=== PATIENT | female | born 1945 | race Caucasian/White ===

== ENCOUNTER 2021-01-29 08:10 | Outpatient (REF) | payer MEDICARE, SELFPAY ==
[2021-01-29 09:30] LABS: Alanine Aminotransferase 32 U/L (0-31); Albumin Level 4.2 g/dL (3.5-5.0); Alkaline Phosphatase 79 U/L (39-117); Anion Gap 14 (12-20); Aspartate Amino Transferase 31 U/L (5-31); Bilirubin Total 0.5 mg/dL (0.0-1.0); Blood Urea Nitrogen 11 mg/dL (9-16); Carbon Dioxide 28 mmol/L (22-29); Chloride 100 mmol/L (96-108); Cholesterol 239 mg/dL; Estimated Glomerular Filt Rate > 60; Glucose Random 85 mg/dL (60-115); HDL Cholesterol 97 mg/dL; LDL Cholesterol Calculated 136 mg/dl; Potassium 4.6 mmol/L (3.3-5.1); Sodium 137 mmol/L (135-145); Total Protein 6.5 g/dL (6.5-8.0); Triglycerides 31 mg/dL
== END 2021-01-29 08:11 | disposition home or self-care (01) ==
LOC: HO.LAB 08:10
PROVIDERS: PCP Internal Medicine; Visit Provider Internal Medicine
DX: E78.00 Pure hypercholesterolemia, unspecified (principal); H61.23 Impacted cerumen, bilateral; I25.810 Atherosclerosis of coronary artery bypass graft(s) without angina pectoris; Z91.14 Patient's other noncompliance with medication regimen
CPT/HCPCS: 36415; 80053; 80061

== ENCOUNTER 2021-08-07 07:16 | Outpatient (REF) | payer MEDICARE, SELFPAY ==
[2021-08-07 08:37] LABS: MANUAL DIFF FLAG NO
[2021-08-07 08:44] LABS: Basophils Percent Auto 0.6 % (0-2); Eosinophils Percent Auto 0.6 % (0-4); Hematocrit 26.9 % (37-47); Hemoglobin 8.5 g/dl (12.0-16.0); Imm Gran Abs Auto 0.02 X10*3/uL (0.00-0.03); Imm Gran Pct Auto 0.4 % (0.0-0.4); Lymphocytes Absolute Auto 1.2 X10*3/uL (1.2-4.9); Lymphocytes Percent Auto 24.6 % (20-40); Mean Corpuscular HGB Conc 31.6 g/dl (31.0-35.0); Mean Corpuscular Hemoglobin 24.3 pg (27.0-33.0); Mean Corpuscular Volume 76.9 fL (80-98); Mean Platelet Volume 8.6 fL (9.4-12.3); Monocytes Absolute Auto 0.5 X10*3/uL (0.1-1.2); Monocytes Percent Auto 10.8 % (2-11); Neutrophils Absolute Auto 3.1 X10*3/uL (2.0-8.3); Platelet Count 484 X10*3/uL (160-400); Red Cell Distribution Width 18.6 % (11.0-16.0); White Blood Count 4.9 X10*3/uL (4.8-10.8)
[2021-08-07 09:31] LABS: Alanine Aminotransferase 16 U/L (0-31); Albumin Level 4.2 g/dL (3.5-5.0); Alkaline Phosphatase 82 U/L (39-117); Anion Gap 10 (12-20); Aspartate Amino Transferase 25 U/L (5-31); Bilirubin Total 0.6 mg/dL (0.0-1.0); Blood Urea Nitrogen 8 mg/dL (9-16); Calcium 9.1 mg/dL (8.4-10.2); Carbon Dioxide 29 mmol/L (22-29); Chloride 101 mmol/L (96-108); Cholesterol 227 mg/dL; Estimated Glomerular Filt Rate > 60; Glucose Fasting 82 mg/dL (60-99); HDL Cholesterol 96 mg/dL; LDL Cholesterol Calculated 125 mg/dl; Potassium 4.3 mmol/L (3.3-5.1); Sodium 136 mmol/L (135-145); Total Protein 6.6 g/dL (6.5-8.0); Triglycerides 32 mg/dL
[2021-08-07 09:36] LABS: Thyroid Stimulating Hormone 1.26 uIU/mL (0.32-4.0)
== END 2021-08-07 07:17 | disposition home or self-care (01) ==
LOC: HO.LAB 07:16
PROVIDERS: PCP Internal Medicine; Visit Provider Internal Medicine
DX: Z00.00 Encounter for general adult medical examination without abnormal findings (principal); E78.00 Pure hypercholesterolemia, unspecified; Z91.14 Patient's other noncompliance with medication regimen
CPT/HCPCS: 36415; 80053; 80061; 84443; 85025

== ENCOUNTER 2021-09-08 07:43 | Emergency (ER) | payer MEDICARE, SELFPAY ==
--- NOTE | ~2021-09-08 | XR_ITS ---
EXAMINATION: XR FOOT, RIGHT CLINICAL INFORMATION: Atraumatic dorsal foot pain. COMPARISON: None TECHNIQUE: AP, lateral, and oblique views of the right foot. An arrow points to the lateral aspect of the fifth metatarsal. FINDINGS: There is no acute fracture or dislocation. The metatarsals are intact. The tarsal bones are normally aligned. 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 The soft tissues are unremarkable. XR/XR foot RT min 3V IMPRESSION: No acute abnormality.
[2021-09-08 07:53] VITALS: BP 155/43; PULSE 71; RESP 16; TEMP 36.6; O2SAT 100; BMI 16.2
--- NOTE | 2021-09-08 08:37 | ED_ITS ---
HPI - Extremity Problem General Chief complaint: Extremity Problem Stated complaint: rt foot pain & swelling Time Seen by Provider: 09/08/21 08:22 Source: patient Mode of arrival: ambulatory Limitations: no limitations History of Present Illness HPI Narrative: 76-year-old female with 3 days of painful red warm dorsum to her right foot that is atraumatic. Patient can bear weight. She is not on any medications and is very healthy 76-year-old female Related Data Previous Rx's Medication Instructions Recorded cephalexin 500 mg capsule 500 mg PO QID 7 Days #28 cap 09/08/21 Allergies Allergy/AdvReac Type Severity Reaction Status Date / Time No Known Allergies Allergy Verified 09/08/21 08:44 Review of Systems Review of Systems: Constitutional : No Weight loss, No Fever, No Chills, No Night Sweats,No Fatigue, No Malaise ENT/Mouth : No Hearing loss, No Ear Pain, No Nasal Congestion, NoSinus Pain, No Hoarseness, No sore throat, No Rhinorrhea, NoSwallowing Difficulty Eyes: No Eye Pain, No Swelling, No Redness, No Foreign Body, NoDischarge, No Vision Changes Cardiovascular : No Chest Pain, No SOB, No Dyspnea on Exertion, NoOrthopnea, No Edema, No Palpitations Respiratory : No Cough, No Sputum, No Wheezing, No Smoke Exposure, No Dyspnea Gastrointestinal : No Nausea, No Vomiting, No Diarrhea, NoConstipation, No abdominal Pain, No Hematochezia, No Melena Genitourinary : no irregular bleeding, No Dysuria, No UrinaryFrequency, No Hematuria, No Urinary Incontinence, No Urgency, No FlankPain, No Urinary Flow Changes, No Hesitancy Musculoskeletal : right foot pain Skin : redness and swelling right foot Neuro : No Weakness, No Numbness, No Paresthesias, No Loss ofConsciousness, No Dizziness, No Headache PMFSH Social History Social History Alcohol intake: current Alcohol intake frequency: holidays/special occasions only Patient Tobacco Use Status: Never used Tobacco Use of substances other than those prescribed or required for medical reasons: No Advance Directives: No Physical Exam Vital Signs: Vital Signs: Last Vital Signs Temp 97.8 F 09/08/21 07:53 Pulse 71 09/08/21 07:53 Resp 16 09/08/21 07:53 BP 155/43 H 09/08/21 07:53 Pulse Ox 100 09/08/21 07:53 Body Mass Index 16.2 Const: General: cooperative, no acute distress, well developed, alert and awake Nutritional Appearance: well nourished Orientation/consciousness: p atient oriented x3 Limitations: no limitations Eyes: Pupils: Equal, round and reactive pupils present Neck: Neck: Yes full ROM, Yes no lymphadenopathy and Yes supple Resp: Effort & Inspection: normal respiratory effort and able to speak in complete sentences Auscultation: clear to auscultation bilaterally, no crackles, no rales, no rhonchi and no wheezes Cardio: Rate: regular rate Rhythm: regular rhythm Heart sounds: S1 normal heart sound present and S2 normal heart sound present GI: Inspection: Yes normal to inspection Palpation (GI): Soft to palpation, nontender, no guarding and not rigid Percussion: Yes normal to percussion Auscultation: normal bowel sounds Skin: Other: Redness swelling and warmth to dorsum of right foot, no laceration or abrasion noted Neuro: General: patient oriented x3, tone normal and moves all extremities Cranial nerves: Yes Equal, round and reactive pupils present Extrem: Right lower extremity: full ROM, normal capillary refill and foot Details: normal capillary refill and tenderness Location: of the dorsal foot Location: distally; Negative for no abrasion, no laceration, no ecchymosis and no crepitus; No no cyanosis and no edema Psych: Appearance: grossly normal Affect: normal affect Attitude: cooperative Thought process: Normal thought process present Course Course Course Narrative: 76-year-old female presents with 3 days of redness swelling and warmth to the dorsum of her right foot. This is diffusely red, there is no localized pain over the joint. Patient has a normal uric acid, CBC is normal, x-ray shows nothing acute. Prescribe cephalexin, counseled to follow-up with PCP. MDM - Extremity (Nontraumatic) Lab Data Result diagrams: 09/08/21 08:56 Labs: Lab Results 09/08/21 09/08/21 Range/Units 08:56 08:56 WBC 5.7 (4.8-10.8) X10*3/uL RBC 3.31 L (4.20-5.50) X10*6/uL Hgb 7.9 L (12.0-16.0) g/dl Hct 25.0 L (37-47) % MCV 75.5 L (80-98) fL MCH 23.9 L (27.0-33.0) pg MCHC 31.6 (31.0-35.0) g/dl RDW 18.4 H (11.0-16.0) % Plt Count 473 H (160-400) X10*3/uL MPV 8.3 L (9.4-12.3) fL Immature Gran % (Auto) 0.4 (0.0-0.4) % Neut % (Auto) 68.3 (45-73) % Lymph % (Auto) 18.1 L (20-40) % Ferry % (Auto) 12.1 H (2-11) % Eos % (Auto) 0.4 (0-4) % Baso % (Auto) 0.7 (0-2) % Lymph # (Auto) 1.0 L (1.2-4.9) X10*3/uL Ferry # (Auto) 0.7 (0.1-1.2) X10*3/uL Eos # (Auto) 0.0 (0.0-0.4) X10*3/uL Baso # (Auto) 0.0 (0.0-0.2) X10*3/uL Abs Immat Gran (auto) 0.02 (0.00-0.03) X10*3/uL Absolute Neuts (auto) 3.9 (2.0-8.3) X10*3/uL Absolute Nucleated RBC 0.000 (0.0-0.012) X10*3/uL Nucleated RBC % (auto) 0.0 (0.0-0.2) /100WBC Uric Acid 3.5 (2.4-5.7) mg/dL Discharge Plan Discharge Clinical Impression: Cellulitis Qualifiers: Site of cellulitis: extremity Site of cellulitis of extremity: lower extremity Laterality: right Qualified Code(s): L03.115 - Cellulitis of right lower limb Patient Disposition: Home, Self-Care Instructions: Cellulitis (ED) Additional Instructions: Please make an appointment with your primary care provider. I would like you to be seen on for recheck. To please take the antibiotic I prescribed tsering ry 6 hours for 1 week. Please take probiotics and eat plenty of yogurt. below elevate your leg, and you can put ice on it. Take Tylenol for pain. Always use your redness swelling and pain should resolve or be getting better in 3 days. If it is not I want you to return to be seen. Prescriptions: New cephalexin 500 mg capsule 500 mg PO QID 7 Days Qty: 28 RF: 0 Interventions: ED Discharge Assessment Last Done: 09/08/21 10:23 Discharge Date/Time: 09/08/21 10:23
[2021-09-08 09:00] LABS: MANUAL DIFF FLAG NO
[2021-09-08 09:07] LABS: Basophils Percent Auto 0.7 % (0-2); Eosinophils Percent Auto 0.4 % (0-4); Hemoglobin 7.9 g/dl (12.0-16.0); Imm Gran Abs Auto 0.02 X10*3/uL (0.00-0.03); Imm Gran Pct Auto 0.4 % (0.0-0.4); Lymphocytes Percent Auto 18.1 % (20-40); Mean Corpuscular HGB Conc 31.6 g/dl (31.0-35.0); Mean Corpuscular Hemoglobin 23.9 pg (27.0-33.0); Mean Corpuscular Volume 75.5 fL (80-98); Mean Platelet Volume 8.3 fL (9.4-12.3); Monocytes Absolute Auto 0.7 X10*3/uL (0.1-1.2); Monocytes Percent Auto 12.1 % (2-11); Neutrophils Absolute Auto 3.9 X10*3/uL (2.0-8.3); Neutrophils Percent Auto 68.3 % (45-73); Platelet Count 473 X10*3/uL (160-400); Red Blood Count 3.31 X10*6/uL (4.20-5.50); Red Cell Distribution Width 18.4 % (11.0-16.0); White Blood Count 5.7 X10*3/uL (4.8-10.8)
[2021-09-08 09:20] LABS: Uric Acid 3.5 mg/dL (2.4-5.7)
== END 2021-09-08 10:23 | disposition home or self-care (01) ==
PROVIDERS: Physician Assistant; Emergency Provider Student in an Organized Health Care Education/Training Program; PCP Internal Medicine
DX: L03.115 Cellulitis of right lower limb (principal); Z79.899 Other long term (current) drug therapy
CPT/HCPCS: 36415; 73630; 84550; 85025; 99283; 99284

== ENCOUNTER 2021-11-19 07:36 | Outpatient (REF) | payer MEDICARE, SELFPAY ==
[2021-11-19 08:00] LABS: MANUAL DIFF FLAG NO
[2021-11-19 08:50] LABS: Basophils Percent Auto 0.8 % (0-2); Eosinophils Percent Auto 0.2 % (0-4); Hematocrit 36.2 % (37.0-47.0); Hemoglobin 11.9 g/dl (12.0-16.0); Imm Gran Abs Auto 0.02 X10*3/uL (0.00-0.03); Imm Gran Pct Auto 0.4 % (0.0-0.4); Lymphocytes Absolute Auto 1.1 X10*3/uL (1.2-4.9); Lymphocytes Percent Auto 23.2 % (20-40); Mean Corpuscular HGB Conc 32.9 g/dl (31.0-35.0); Mean Corpuscular Hemoglobin 28.7 pg (27.0-33.0); Mean Corpuscular Volume 87.4 fL (80.0-98.0); Mean Platelet Volume 9.1 fL (9.4-12.3); Monocytes Absolute Auto 0.5 X10*3/uL (0.1-1.2); Monocytes Percent Auto 9.3 % (2-11); Neutrophils Absolute Auto 3.2 x10*3/uL (2.0-8.3); Neutrophils Percent Auto 66.1 % (45-73); Platelet Count 345 X10*3/uL (160-400); Red Blood Count 4.14 X10*6/uL (4.20-5.50); Red Cell Distribution Width 25.5 % (11.0-16.0); White Blood Count 4.8 X10*3/uL (4.8-10.8)
[2021-11-19 09:20] LABS: Ferritin 31 ng/mL (10-250)
== END 2021-11-19 07:37 | disposition home or self-care (01) ==
LOC: HO.LAB 07:36
PROVIDERS: PCP Internal Medicine; Visit Provider Internal Medicine
DX: D50.8 Other iron deficiency anemias (principal); E78.00 Pure hypercholesterolemia, unspecified; Z91.19 Patient's noncompliance with other medical treatment and regimen
CPT/HCPCS: 36415; 82728; 85025

== ENCOUNTER 2022-03-20 07:19 | Outpatient (REF) | payer MEDICARE, SELFPAY ==
[2022-03-20 07:32] LABS: MANUAL DIFF FLAG NO
[2022-03-20 08:03] LABS: Basophils Percent Auto 0.7 % (0-2); Eosinophils Percent Auto 0.7 % (0-4); Hematocrit 35.1 % (37.0-47.0); Hemoglobin 11.7 g/dl (12.0-16.0); Imm Gran Abs Auto 0.02 X10*3/uL (0.00-0.03); Imm Gran Pct Auto 0.4 % (0.0-0.4); Lymphocytes Absolute Auto 1.2 X10*3/uL (1.2-4.9); Lymphocytes Percent Auto 21.8 % (20-40); Mean Corpuscular HGB Conc 33.3 g/dl (31.0-35.0); Mean Corpuscular Hemoglobin 32.4 pg (27.0-33.0); Mean Corpuscular Volume 97.2 fL (80.0-98.0); Monocytes Absolute Auto 0.5 X10*3/uL (0.1-1.2); Monocytes Percent Auto 9.5 % (2-11); Neutrophils Absolute Auto 3.8 x10*3/uL (2.0-8.3); Neutrophils Percent Auto 66.9 % (45-73); Platelet Count 361 X10*3/uL (160-400); Red Blood Count 3.61 X10*6/uL (4.20-5.50); Red Cell Distribution Width 13.4 % (11.0-16.0); White Blood Count 5.7 X10*3/uL (4.8-10.8)
[2022-03-20 08:33] LABS: Alanine Aminotransferase 20 U/L (0-31); Albumin Level 4.2 g/dL (3.5-5.0); Alkaline Phosphatase 81 U/L (39-117); Aspartate Amino Transferase 25 U/L (5-31); Bilirubin Direct 0.2 mg/dL (0.0-0.5); Bilirubin Total 0.5 mg/dL (0.0-1.0); Iron 67 mcg/dL (30-160); Percent Iron Saturation 15 % (15-50); Total Iron Binding Capacity 448 mcg/dL (228-428); Total Protein 6.6 g/dL (6.5-8.0); Unsaturated Iron Binding 381 ug/dL
[2022-03-20 08:54] LABS: Ferritin 12 ng/mL (10-250)
[2022-03-20 09:54] LABS: Folate 19.1 ng/mL (> or = 4.0); Vitamin B12 1419 pg/mL (200-900)
[2022-03-23 23:01] LABS: Gliadin Deamidated IgA Ab <1.0 U/mL; Gliadin Deamidated IgG Ab <1.0 U/mL; Transglutaminase Ab IgG <1.0 U/mL; Transglutaminase IgA <1.0 U/mL
[2022-03-24 14:22] LABS: Immunoglobulin A 146 mg/dL (70-320)
[2022-03-25 14:02] LABS: Endomysial IgA Antibody Negative (Negative)
== END 2022-03-20 07:20 | disposition home or self-care (01) ==
LOC: HO.LAB 07:19
PROVIDERS: PCP Internal Medicine; Visit Provider Internal Medicine
DX: D50.9 Iron deficiency anemia, unspecified (principal)
CPT/HCPCS: 36415; 80076; 82607; 82728; 82746; 82784; 83540; 85025; 86231; 86258; 86364

== ENCOUNTER 2022-03-30 11:07 | Day surgery (SDC) | payer MEDICARE, SELFPAY ==
[2022-03-30 12:25] VITALS: BP 159/68; PULSE 68; RESP 16; TEMP 36.5; O2SAT 100; BMI 16.1
[2022-03-30] MEDS: Lactated Ringers 1,000 ML 50 ML IVCONT (12:48)
--- NOTE | 2022-03-30 13:32 | HO.ANESPROP2 ---
[facility] Family History Family history of problems with anesthesia: No Surgical History History of Problems with Anesthesia: No Social History Social History Alcohol intake: current Alcohol intake frequency: does not drink Patient Tobacco Use Status: Former Tobacco user Tobacco use type: Cigarette Smoked in Last 30 Days: No Use of substances other than those prescribed or required for medical reasons: No Are you DNR?: No Advance Directives: No Advance Directives Information Provided: Yes Meds Allergies Allergy/AdvReac Type Severity Reaction Status Date / Time No Known Allergies Allergy Verified 03/30/22 12:22 Active Medications: Current Medications Lactated Ringer's (Lr) 1,000 mls @ 50 mls/hr IVCONT .Q20H SVEN Last Admin: 03/30/22 12:48 Dose: 50 mls/hr Documented by: Sodium Biphosphate/Sodium Phosphate (Sodium Phosphate,[place]-Dibasic 133 Ml Enema) 133 ml MO ONCE PRN PRN Reason: Poor Colonoscopy Prep Results Home Medications Medication Instructions Recorded Confirmed Last Taken Type aspirin 1 tab PO DAILY 03/30/22 03/30/22 03/23/22 History Exam Exam Date and Time: March 30, 2022 1332 Height,Weight and Vital Signs: Height 5 ft 6 in Weight 45.359 kg Last Vital Signs Temp 97.7 F 03/30/22 12:25 Pulse 68 03/30/22 12:25 Resp 16 03/30/22 12:25 BP 159/68 H 03/30/22 12:25 Pulse Ox 100 03/30/22 12:25 Airway Mallampati Class: II TM Dist: >3cm Neck ROM: Full Assessment and Plan Assessment Anesthesia Assessment: Anesthesia Plan Discussed and Chart Reviewed Final Anesthetic Review Family History of Problems with Anesthesia: No History of Problems with Anesthesia: No NPO: Yes ASA Class: II Final Preanesthetic Review: No Changes in Pt Med Stat, Meds/Allgs Chart Reviewed, Consent Obtained/Reviewed and Anes Risks/Benef Reviewed Patient Risk: Intermediate Procedure Risk: Low Anesthetic Plan Anesthetic Plan: MAC: Disposition: Standard PACU
[2022-03-30 14:56] VITALS: BP 94/40; PULSE 67; RESP 16; TEMP 36.6; O2SAT 99
--- NOTE | 2022-03-30 15:03 | P.BOP_ITS ---
Brief Operative Note Date of Service: 03/30/22 Pre-op diagnosis: Anemia Post-op diagnosis: other (GERD, Gastritis, R/O Celiac disease) Procedure: EGD with biopsies, Colonoscopy to the cecum and TI Surgeon: Samuel Vasquez Anesthesia: MAC Was an Security Officer Supervisor used for this Procedure?: No Estimated blood loss (mL): 2.0 Pathology: other (A. Descending duodenum B. Gastric antrum C. EG Junction at 37cm D. Esophagus at 35cm) Condition: stable Disposition: PACU
[2022-03-30 15:11] VITALS: BP 107/51; PULSE 60; RESP 16; O2SAT 100
[2022-03-30 15:26] VITALS: BP 111/66; PULSE 68; RESP 18; O2SAT 100
[2022-03-30 15:41] VITALS: BP 144/55; PULSE 66; RESP 19; TEMP 36.5; O2SAT 100
--- NOTE | 2022-03-30 21:26 | OP_ITS ---
SURGEON: Samuel Vasquez MD INDICATIONS: The patient presents for evaluation of iron-deficiency anemia and change in bowel habits. Full consent has been obtained from her for both procedures, including risks of bleeding and perforation. PREOPERATIVE DIAGNOSIS: POSTOPERATIVE DIAGNOSIS: PROCEDURE PERFORMED: Esophagogastroduodenoscopy with biopsies, and colonoscopy to the cecum and terminal ileum. ESTIMATED BLOOD LOSS: COMPLICATIONS: ANESTHESIA: Monitored anesthesia care. ASSISTANTS: SPECIMENS: PREOPERATIVE DIAGNOSES: Iron deficiency anemia and change in bowel habits. POSTOPERATIVE DIAGNOSES: Iron deficiency anemia and change in bowel habits, small hiatal hernia, gastroesophageal reflux, gastritis, rule out celiac disease, diverticulosis, and internal hemorrhoids. DESCRIPTION OF PROCEDURE: The patient was placed in the left lateral decubitus position. The Olympus video gastroscope was passed in the posterior oropharynx and upper esophagus under direct vision. The scope was passed slowly to the distal esophagus. The gastroesophageal junction appeared at 37 cm. There was some slight irregularity at this area as well as some evidence of edema and erythema in the distal several cm of the esophagus. There was no definitive evidence of Pittman mucosa. There was no gross evidence of esophagitis. The tissue itself was somewhat friable, however. The scope entered into the stomach. There was a small hiatal hernia. The scope was advanced to the pylorus and the duodenum was cannulated to the descending portion. The duodenum including the bulb appeared normal. Biopsies were obtained in the 2nd and 3rd portions of duodenum. The scope was withdrawn back into the stomach. The gastric antrum had some areas of erythema and a single several mm erosion. There was good peristalsis. The scope was retroflexed visualizing the proximal stomach carefully, which appeared normal, without any sign of mass or ulceration. The scope was straightened. Biopsies were obtained from the gastric antrum. The scope was withdrawn back into the esophagus. Biopsies were obtained at the EG junction at 37 cm. I also obtained biopsies at 35 cm. Proximal to this, the esophageal mucosa appeared basically normal other than some minimal erythema and friability. The scope was withdrawn from the patient. She was turned around for the colonoscopy. The digital rectal exam revealed no abnormalities. The Olympus video pediatric colonoscope was entered into the rectum and advanced to the cecum. Advancement to the cecum was somewhat difficult. Once in the cecum, I did identify normal-appearing cecal pouch with appendiceal orifice and a normal-appearing ileocecal valve. The terminal ileum was cannulated and appeared normal. The scope was withdrawn back into the colon. The entire cecum and ileocecal valve appeared normal. The scope was slowly withdrawn assessing all mucosal surfaces carefully. Preparation was excellent. I did not visualize any sign of polyps, colitis, nor angiodysplasia. There was a mild amount of sigmoid diverticulosis. In the rectum, the scope was retroflexed visualizing small internal hemorrhoids, but no other pathology. The rectal mucosa appeared normal. The scope was straightened and withdrawn from the patient. She tolerated the procedure well and was returned to the recovery area in stable condition. IMPRESSION: 1. Small hiatal hernia, gastroesophageal reflux. 2. Gastritis. 3. Rule out celiac disease. 4. Diverticulosis. 5. Internal hemorrhoids. PLAN: The results of the biopsies will be checked. Given her history, I shall put her on a trial of omeprazole 20 mg daily. She was advised to resume iron as the most recent laboratories she had in February revealed a ferritin of only 12, hemoglobin of 11.7 with a normal MCV, an iron saturation of 15% with iron of 67. She was advised to resume her aspirin in 48 hours. She was advised to see me again within several months for a followup visit. Depending on her clinical course and her anemia, she may possibly require a small bowel video capsule study. However, if things resolve on the iron replacement and with treatment of the reflux, I would then most likely hold off on that. She was also advised to start a regimen of supplemental fiber with a lot of water to help improve her bowel movement regularity. MD MANI Webster/HUMBERTO / [id number] [facility] HOSPITALTomeka
== END 2022-03-30 16:18 | disposition home or self-care (01) ==
PROVIDERS: PCP Internal Medicine; Visit Provider Internal Medicine
PROC: (CPT 45378; principal; 2022-03-30 12:30)
DX: D50.9 Iron deficiency anemia, unspecified (principal); R19.4 Change in bowel habit; K57.30 Diverticulosis of large intestine without perforation or abscess without bleeding; K64.8 Other hemorrhoids; K29.50 Unspecified chronic gastritis without bleeding; K21.9 Gastro-esophageal reflux disease without esophagitis; K44.9 Diaphragmatic hernia without obstruction or gangrene; Z79.82 Long term (current) use of aspirin; Z79.899 Other long term (current) drug therapy; Z87.891 Personal history of nicotine dependence
CPT/HCPCS: 45378; 43239; 88305; 88342

== ENCOUNTER 2022-07-08 07:10 | Outpatient (REF) | payer MEDICARE, SELFPAY ==
[2022-07-08 07:28] LABS: MANUAL DIFF FLAG NO
[2022-07-08 07:55] LABS: Basophils Percent Auto 0.7 % (0-2); Eosinophils Absolute Auto 0.1 X10*3/uL (0.0-0.4); Eosinophils Percent Auto 0.8 % (0-4); Hematocrit 38.1 % (37.0-47.0); Hemoglobin 13.1 g/dl (12.0-16.0); Imm Gran Abs Auto 0.02 X10*3/uL (0.00-0.03); Imm Gran Pct Auto 0.3 % (0.0-0.4); Lymphocytes Absolute Auto 1.3 X10*3/uL (1.2-4.9); Lymphocytes Percent Auto 21.6 % (20-40); Mean Corpuscular HGB Conc 34.4 g/dl (31.0-35.0); Mean Corpuscular Hemoglobin 33.2 pg (27.0-33.0); Mean Corpuscular Volume 96.5 fL (80.0-98.0); Mean Platelet Volume 8.8 fL (9.4-12.3); Monocytes Absolute Auto 0.6 X10*3/uL (0.1-1.2); Monocytes Percent Auto 9.9 % (2-11); Neutrophils Absolute Auto 4.1 x10*3/uL (2.0-8.3); Neutrophils Percent Auto 66.7 % (45-73); Platelet Count 336 X10*3/uL (160-400); Red Blood Count 3.95 X10*6/uL (4.20-5.50); White Blood Count 6.1 X10*3/uL (4.8-10.8)
[2022-07-08 08:27] LABS: Alanine Aminotransferase 22 U/L (0-31); Albumin Level 4.2 g/dL (3.5-5.0); Alkaline Phosphatase 92 U/L (39-117); Anion Gap 14 (12-20); Aspartate Amino Transferase 27 U/L (5-31); Bilirubin Total 0.5 mg/dL (0.0-1.0); Blood Urea Nitrogen 10 mg/dL (9-16); Calcium 9.2 mg/dL (8.4-10.2); Carbon Dioxide 31 mmol/L (22-29); Chloride 98 mmol/L (96-108); Cholesterol 250 mg/dL; Estimated Glomerular Filt Rate > 60; Glucose Random 82 mg/dL (60-115); HDL Cholesterol 89 mg/dL; LDL Cholesterol Calculated 154 mg/dl; Potassium 4.6 mmol/L (3.3-5.1); Sodium 138 mmol/L (135-145); Total Protein 6.7 g/dL (6.5-8.0); Triglycerides 36 mg/dL
[2022-07-08 08:47] LABS: Thyroid Stimulating Hormone 1.12 uIU/mL (0.32-4.0)
== END 2022-07-08 07:11 | disposition home or self-care (01) ==
LOC: HO.LAB 07:10
PROVIDERS: PCP Internal Medicine; Visit Provider Internal Medicine
DX: D50.8 Other iron deficiency anemias (principal); I25.810 Atherosclerosis of coronary artery bypass graft(s) without angina pectoris; Z68.1 Body mass index [BMI] 19.9 or less, adult
CPT/HCPCS: 36415; 80053; 80061; 84443; 85025

== ENCOUNTER 2023-01-04 09:16 | Day surgery (SDC) | payer MEDICARE, SELFPAY ==
[2022-12-24 11:39] VITALS: BMI 17.6
--- NOTE | 2022-12-30 09:37 | MHC.SHP ---
Pre-Procedural Eval Section A Date of Service: 12/30/22 The patient is an INPATIENT: No Changes since office visit: No Cold of Flu in the past 2 weeks, No New Medical Problems, No Changes in Medication and No Patient answered all questions The History & Physical has been completed within 30 days and I have reviewed it.: Yes Section B Chief Complaint: Age-related nuclear cataract, right eye Allergies: Allergies Allergy/AdvReac Type Severity Reaction Status Date / Time No Known Allergies Allergy Verified 03/30/22 12:22 Plan Diagnosis/Plan: Unchanged I have reviewed the history and physical and performed a pertinent physical examination on my patient. No changes have occurred unless specified. Time Spent With Patient Time: Total time managing care of this patient today ____ minutes.
[2023-01-04 10:12] VITALS: BP 150/53; PULSE 68; RESP 18; TEMP 36.6; O2SAT 98
[2023-01-04] MEDS: Ketorolac Tromethamine 0.5% Op 5 ML DROPS 1 DROP EYE-RIGHT ×3 (10:19→10:22)
[2023-01-04] MEDS: Cyclopentolate 1 % Ophth Sol 2 ML DRPBTL 1 DROP EYE-RIGHT ×3 (10:19→10:22)
[2023-01-04] MEDS: Tetracaine HCl/PF 0.5% Oph Sol 4 ML DROPS 1 DROP EYE-RIGHT (10:19)
[2023-01-04] MEDS: Phenylephrine HCL 2.5% Oph SoL 2 ML BOTTLE 1 DROP EYE-RIGHT ×3 (10:20→10:22)
[2023-01-04] MEDS: Tropicamide 1 % Ophth Sol 3 ML BTL 1 DROP EYE-RIGHT ×3 (10:21→10:22)
--- NOTE | 2023-01-04 10:27 | HO.ANESPROP2 ---
HPI - Anesthesia Eval Consult details Narrative: 77yo female patient for Right cataractextraction, IOL insertion PMFSH Past Medical History Medical History History of COVID-19 Iron deficiency anemia Myocardial infarction Family History Family history of problems with anesthesia: No Surgical History Surgical History H/O colonoscopy History of esophagogastroduodenoscopy (EGD) Hx of appendectomy Hx of hysterectomy History of Problems with Anesthesia: No Social History Social History Are you a primary career professional to a significant other at home: No Do you presently have visiting nurse or other home services: No Alcohol intake: current Alcohol intake frequency: does not drink Patient Tobacco Use Status: Former Tobacco user Quit Date: age 28 Tobacco use type: Cigarette Use of substances other than those prescribed or required for medical reasons: No Have you been hit, kicked, punched, or otherwise hurt by someone within the past year? If so, by whom?: No Are you DNR?: No Advance Directives: No Advance Directives Information Provided: Yes (brochure mailed) Advance Directives on File: No Recently lost weight without trying: No Eating poorly because of decreased appetite: No Nutrition Risks: Surgical patient >75years Poor oral hygiene: No (upper & lower full denture) Meds Allergies Allergy/AdvReac Type Severity Reaction Status Date / Time No Known Allergies Allergy Verified 03/30/22 12:22 Active Medications: Current Medications Cyclopentolate HCl (Cyclopentolate 1 % Ophth Reina 2 Ml Drpbtl) 1 drop EYE-RIGHT Q5M SVEN Stop: 01/04/23 10:26 Last Admin: 01/04/23 10:22 Dose: 1 drop Ketorolac Tromethamine (Ketorolac Tromethamine 0.5% Op 5 Ml Drops) 1 drop EYE-RIGHT Q5M SVEN Stop: 01/04/23 10:26 Last Admin: 01/04/23 10:22 Dose: 1 drop Moxifloxacin HCl (Moxifloxacin Hcl 0.5 % Oph Reina 3 Ml Drpbtl) 1 drop EYE-RIGHT POSTOP ONE Stop: 01/04/23 10:05 Phenylephrine HCl (Phenylephrine Hcl 2.5% Oph Reina 2 Ml Bottle) 1 drop EYE-RIGHT Q5M SVEN Stop: 01/04/23 10:26 Last Admin: 01/04/23 10:22 Dose: 1 1000units Povidone Iodine (Povidone Iodine 5 % Ophth Soln 30 Ml Bottle) 1 appl EYE-RIGHT PREOP PRN PRN Reason: Pre-Op Surgical Implant Prophy Tetracaine HCl (Tetracaine Hcl/Pf 0.5% Oph Reina 4 Ml Drops) 1 drop EYE-RIGHT PREOP ONE Stop: 01/04/23 10:05 Last Admin: 01/04/23 10:19 Dose: 1 drop Triamcinolone Acetonide (Triamcinolone Acetonide 40 Mg/Ml Vial) 40 mg IM POSTOP ONE Stop: 01/04/23 10:05 Tropicamide (Tropicamide 1 % Ophth Reina 3 Ml Btl) 1 drop EYE-RIGHT Q5M SVEN Stop: 01/04/23 10:26 Last Admin: 01/04/23 10:22 Dose: 1 drop Home Medications Medication Instructions Recorded Confirmed Last Taken Type aspirin 1 tab PO DAILY 03/30/22 12/24/22 03/23/22 History ferrous sulfate 325 mg (65 mg 325 mg PO DAILY 12/24/22 12/24/22 Unknown History iron) tablet Exam Exam Date and Time: January 04, 2023 1027 Height,Weight and Vital Signs: Height 5 ft 3 in Weight 45.359 kg Last Vital Signs Temp 97.9 F 01/04/23 10:12 Pulse 68 01/04/23 10:12 Resp 18 01/04/23 10:12 BP 150/53 H 01/04/23 10:12 Pulse Ox 98 01/04/23 10:12 O2 Del Method 01/04/23 10:12 Airway Mallampati Class: II TM Dist: >3cm Neck ROM: Full Denture: Upper and Lower Heart: RRR Lungs: CTAB Assessment and Plan Assessment Anesthesia Assessment: Anesthesia Plan Discussed and Chart Reviewed Final Anesthetic Review Family History of Problems with Anesthesia: No History of Problems with Anesthesia: No NPO: No (1/2 cup of water @ about 9am) ASA Class: III Final Preanesthetic Review: No Changes in Pt Med Stat, Meds/Allgs Chart Reviewed, Consent Obtained/Reviewed and Anes Risks/Benef Reviewed Patient Risk: Intermediate Procedure Risk: Low Assessment/Block/Sedation in SS: Assess/Block/Sedation-SS Anesthetic Plan Anesthetic Plan: MAC: Disposition: Standard PACU
[2023-01-04] MEDS: Lactated Ringers 500 ML 20 ML IVCONT (10:39)
--- NOTE | 2023-01-04 11:34 | HO.PNOPHT ---
Ophthalmology Procedure Procedure Date of Service: 01/04/23 Ophthalmology Viscoelastic: Vern Srt Dual Pack Pro Ophthalmology Lenses: TECFELTON [id number] (24) Procedure Notes: PREOPERATIVE DIAGNOSIS: Decreased visual acuity right eye secondary to cataract POSTOPERATIVE DIAGNOSIS: Same PROCEDURE: Right cataract extraction with intraocular lens insertion SURGEON: Julien Whitehead M.D. ANESTHESIA: Topical/MAC ESTIMATED BLOOD LOSS: None COMPLICATIONS: None After obtaining informed consent, the patient was brought to the operating room suite and placed in the supine position. After adequate sedation per anesthesia, topical drops of Tetracaine were given to the right eye. The eye was then prepped and draped in the usual sterile fashion. The operating room microscope was then positioned over the operative eye and a lid speculum placed. A paracentesis was created. Viscoelastic was then instilled into the anterior chamber. A three plane incision was then created temporally, utilizing a 2.85 mm keratome. Capsulotomy forceps were then utilized to create a circular tear capsulotomy. Hydrodissection and hydrodelineation were carried out until adequate mobilization of the nucleus occurred. Phacoemulsification was then utilized to remove the dense central nucleus followed by removal of the cortical material utilizing the automated aspiration irrigation unit. Viscoelastic was instilled into the posterior capsular bag followed by placement of a posterior chamber intraocular lens without difficulty. The residual Viscoelastic was then removed utilizing the automated IA machine. The wound was checked and found to be watertight. The patient tolerated the procedure well and the lid speculum was removed. Intracameral injection of Vigamox 0.1 mL followed by a subtenon injection of Kenalog-40 0.2 mL were administered. The patient will be seen in the a.m.
[2023-01-04 12:11] VITALS: BP 148/66; PULSE 73; RESP 16; TEMP 36.4; O2SAT 100
== END 2023-01-04 12:18 | disposition home or self-care (01) ==
PROVIDERS: PCP Internal Medicine; Visit Provider Ophthalmology
PROC: (CPT 66985; principal; 2023-01-04 12:30)
DX: H25.11 Age-related nuclear cataract, right eye (principal); H52.4 Presbyopia; H40.013 Open angle with borderline findings, low risk, bilateral; Z83.511 Family history of glaucoma; I25.2 Old myocardial infarction; D50.9 Iron deficiency anemia, unspecified; Z79.82 Long term (current) use of aspirin; Z79.899 Other long term (current) drug therapy; Z87.891 Personal history of nicotine dependence
CPT/HCPCS: 66984; J2250; J3010; J3301; V2632

== ENCOUNTER 2023-01-18 09:18 | Day surgery (SDC) | payer MEDICARE, SELFPAY ==
[2022-12-24 11:41] VITALS: BMI 17.6
--- NOTE | 2023-01-14 09:40 | MHC.SHP ---
Pre-Procedural Eval Section A Date of Service: 01/14/23 The patient is an INPATIENT: No Changes since office visit: No Cold of Flu in the past 2 weeks, No New Medical Problems, No Changes in Medication and No Patient answered all questions The History & Physical has been completed within 30 days and I have reviewed it.: Yes Section B Chief Complaint: Age-related nuclear cataract, left eye Allergies: Allergies Allergy/AdvReac Type Severity Reaction Status Date / Time No Known Allergies Allergy Verified 03/30/22 12:22 Plan Diagnosis/Plan: Unchanged I have reviewed the history and physical and performed a pertinent physical examination on my patient. No changes have occurred unless specified. Time Spent With Patient Time: Total time managing care of this patient today ____ minutes.
--- NOTE | 2023-01-18 09:19 | P.CONAN_ITS ---
[facility] Past Medical History Medical History History of COVID-19 Iron deficiency anemia Myocardial infarction Family History Family history of problems with anesthesia: No Surgical History Surgical History H/O colonoscopy History of esophagogastroduodenoscopy (EGD) Hx of appendectomy Hx of hysterectomy History of Problems with Anesthesia: No Social History Social History Are you a primary geriatric care manager to a significant other at home: No Do you presently have visiting nurse or other home services: No Alcohol intake: current Alcohol intake frequency: does not drink Patient Tobacco Use Status: Former Tobacco user Quit Date: age 28 Tobacco use type: Cigarette Use of substances other than those prescribed or required for medical reasons: No Have you been hit, kicked, punched, or otherwise hurt by someone within the past year? If so, by whom?: No Are you DNR?: No Advance Directives: No Advance Directives Information Provided: Yes (brochure mailed) Advance Directives on File: No Recently lost weight without trying: No Eating poorly because of decreased appetite: No Nutrition Risks: Surgical patient >75years Poor oral hygiene: No (upper & lower full denture) Meds Allergies Allergy/AdvReac Type Severity Reaction Status Date / Time No Known Allergies Allergy Verified 03/30/22 12:22 Home Medications Medication Instructions Recorded Confirmed Last Taken Type aspirin 1 tab PO DAILY 03/30/22 01/18/23 03/23/22 History ferrous sulfate 325 mg (65 mg 325 mg PO DAILY 12/24/22 01/18/23 Unknown History iron) tablet Exam Exam Date and Time: January 18, 2023 0919 Height,Weight and Vital Signs: Height 5 ft 3 in Weight 45.359 kg Airway Mallampati Class: II TM Dist: >3cm Neck ROM: Full Heart: rrr Lungs: cta bl Assessment and Plan Assessment Anesthesia Assessment: Anesthesia Plan Discussed and Chart Reviewed Final Anesthetic Review Family History of Problems with Anesthesia: No History of Problems with Anesthesia: No NPO: Yes ASA Class: II Final Preanesthetic Review: No Changes in Pt Med Stat, Meds/Allgs Chart Reviewed and Consent Obtained/Reviewed Patient Risk: Intermediate Procedure Risk: Intermediate Anesthetic Plan Anesthetic Plan: MAC: Disposition: Standard PACU
[2023-01-18 10:19] VITALS: BP 153/56; PULSE 69; RESP 16; TEMP 36.9; O2SAT 99
[2023-01-18] MEDS: Tetracaine HCl/PF 0.5% Oph Sol 4 ML DROPS 1 DROP EYE-RIGHT (10:22)
[2023-01-18] MEDS: Tropicamide 1 % Ophth Sol 3 ML BTL 1 DROP EYE-RIGHT ×3 (10:23→10:31)
[2023-01-18] MEDS: Cyclopentolate 1 % Ophth Sol 2 ML DRPBTL 1 DROP EYE-RIGHT ×3 (10:25→10:32)
[2023-01-18] MEDS: Ketorolac Tromethamine 0.5% Op 5 ML DROPS 1 DROP EYE-RIGHT ×3 (10:26→10:33)
[2023-01-18] MEDS: Phenylephrine HCL 2.5% Oph SoL 2 ML BOTTLE 1 DROP EYE-RIGHT ×3 (10:26→10:36)
[2023-01-18] MEDS: Lactated Ringers 500 ML 50 ML IV (10:37)
--- NOTE | 2023-01-18 11:11 | HO.PNOPHT ---
Ophthalmology Procedure Procedure Date of Service: 01/18/23 Ophthalmology Viscoelastic: Healcarmelina Srt Dual Pack Pro Ophthalmology Lenses: TECFELTON [id number] (23) Procedure Notes: PREOPERATIVE DIAGNOSIS: Decreased visual acuity left eye secondary to cataract POSTOPERATIVE DIAGNOSIS: Same PROCEDURE: Left cataract extraction with intraocular lens insertion SURGEON: Julien Whitehead M.D. ANESTHESIA: Topical/MAC ESTIMATED BLOOD LOSS: None COMPLICATIONS: None After obtaining informed consent, the patient was brought to the operation room suite and placed in the supine position. After adequate sedation per anesthesia, topical drops of Tetracaine were given to the left eye. The eye was then prepped and draped in the usual sterile fashion. The operating room microscope was then positioned over the operative eye and a lid speculum placed. A paracentesis was created. Viscoelastic was then instilled into the anterior chamber. A three plane incision was then created temporally, utilizing a 2.85 mm keratome. Capsulotomy forceps were then utilized to create a circular tear capsulotomy. Hydrodissection and hydrodelineation were carried out until adequate mobilization of the nucleus occurred. Phacoemulsification was then utilized to remove the dense central nucleus followed by removal of the cortical material utilizing the automated aspiration irrigation unit. Viscoat elastic was instilled into the posterior capsular bag followed by placement of a posterior chamber intraocular lens without difficulty. The residual Viscoat elastic was then removed utilizing the automated IA machine. The wound was check and found to be watertight. The patient tolerated the procedure well and the lid speculum was removed. Intracameral injection of Vigamox 0.1 mL followed by a subtenon injection of Kenalog-40 0.2 mL were administered. The patient will be seen in the a.m.
[2023-01-18 11:32] VITALS: BP 143/69; PULSE 69; RESP 15; TEMP 36.9; O2SAT 100
== END 2023-01-18 11:48 ==
LOC: HO.SSS 09:27
PROVIDERS: PCP Internal Medicine; Visit Provider Ophthalmology
PROC: (CPT 66985; principal; 2023-01-18 10:50)
DX: H25.12 Age-related nuclear cataract, left eye (principal); Z83.511 Family history of glaucoma; H52.4 Presbyopia; H40.013 Open angle with borderline findings, low risk, bilateral; H35.363 Drusen (degenerative) of macula, bilateral; H18.413 Arcus senilis, bilateral; D50.9 Iron deficiency anemia, unspecified; I25.2 Old myocardial infarction; Z79.82 Long term (current) use of aspirin; Z79.899 Other long term (current) drug therapy; Z87.891 Personal history of nicotine dependence; Z86.16 Personal history of COVID-19
CPT/HCPCS: 66984; J2250; J3301; V2632

== ENCOUNTER 2023-05-21 06:58 | Outpatient (REF) | payer MEDICARE, SELFPAY ==
[2023-05-21 07:10] LABS: MANUAL DIFF FLAG NO
[2023-05-21 07:32] LABS: Basophils Absolute Auto 0.1 X10*3/uL (0.0-0.2); Basophils Percent Auto 0.9 % (0-2); Eosinophils Absolute Auto 0.1 X10*3/uL (0.0-0.4); Eosinophils Percent Auto 0.9 % (0-4); Hematocrit 37.6 % (37.0-47.0); Hemoglobin 12.5 g/dl (12.0-16.0); Imm Gran Abs Auto 0.02 X10*3/uL (0.00-0.03); Imm Gran Pct Auto 0.3 % (0.0-0.4); Lymphocytes Absolute Auto 1.4 X10*3/uL (1.2-4.9); Lymphocytes Percent Auto 18.5 % (20-40); Mean Corpuscular HGB Conc 33.2 g/dl (31.0-35.0); Mean Corpuscular Hemoglobin 30.7 pg (27.0-33.0); Mean Corpuscular Volume 92.4 fL (80.0-98.0); Mean Platelet Volume 8.5 fL (9.4-12.3); Monocytes Absolute Auto 0.6 X10*3/uL (0.1-1.2); Monocytes Percent Auto 8.3 % (2-11); Neutrophils Absolute Auto 5.3 x10*3/uL (2.0-8.3); Neutrophils Percent Auto 71.1 % (45-73); Platelet Count 405 X10*3/uL (160-400); Red Blood Count 4.07 X10*6/uL (4.20-5.50); Red Cell Distribution Width 13.1 % (11.0-16.0); White Blood Count 7.5 X10*3/uL (4.8-10.8)
[2023-05-21 08:09] LABS: Alanine Aminotransferase 21 U/L (0-31); Albumin Level 4.1 g/dL (3.5-5.0); Alkaline Phosphatase 86 U/L (39-117); Anion Gap 12 (12-20); Aspartate Amino Transferase 25 U/L (5-31); Bilirubin Total 0.6 mg/dL (0.0-1.0); Blood Urea Nitrogen 13 mg/dL (9-16); Calcium 9.7 mg/dL (8.4-10.2); Carbon Dioxide 30 mmol/L (22-29); Chloride 100 mmol/L (96-108); Cholesterol 239 mg/dL; Estimated Glomerular Filt Rate > 60; Glucose Random 102 mg/dL (60-115); HDL Cholesterol 89 mg/dL; LDL Cholesterol Calculated 143 mg/dl; Potassium 4.4 mmol/L (3.3-5.1); Sodium 138 mmol/L (135-145); Triglycerides 36 mg/dL
[2023-05-21 08:16] LABS: Thyroid Stimulating Hormone 0.95 uIU/mL (0.32-4.0)
== END 2023-05-21 06:59 | disposition home or self-care (01) ==
LOC: HO.LAB 06:58
PROVIDERS: PCP Internal Medicine; Visit Provider Internal Medicine
DX: D50.8 Other iron deficiency anemias (principal); I25.810 Atherosclerosis of coronary artery bypass graft(s) without angina pectoris; R63.6 Underweight
CPT/HCPCS: 36415; 80053; 80061; 84443; 85025

== ENCOUNTER 2024-01-05 12:28 | Outpatient (REF) | payer MEDICARE, SELFPAY ==
[2024-01-05 12:55] LABS: MANUAL DIFF FLAG NO
[2024-01-05 13:58] LABS: Basophils Absolute Auto 0.1 X10*3/uL (0.0-0.2); Basophils Percent Auto 0.8 % (0-2); Eosinophils Absolute Auto 0.1 X10*3/uL (0.0-0.4); Eosinophils Percent Auto 0.7 % (0-4); Hematocrit 32.3 % (37.0-47.0); Hemoglobin 10.7 g/dl (12.0-16.0); Imm Gran Abs Auto 0.04 X10*3/uL (0.00-0.03); Imm Gran Pct Auto 0.4 % (0.0-0.4); Lymphocytes Absolute Auto 1.7 X10*3/uL (1.2-4.9); Lymphocytes Percent Auto 18.4 % (20-40); Mean Corpuscular HGB Conc 33.1 g/dl (31.0-35.0); Mean Corpuscular Hemoglobin 28.5 pg (27.0-33.0); Mean Corpuscular Volume 85.9 fL (80.0-98.0); Mean Platelet Volume 8.9 fL (9.4-12.3); Monocytes Absolute Auto 0.8 X10*3/uL (0.1-1.2); Monocytes Percent Auto 9.3 % (2-11); Neutrophils Absolute Auto 6.4 x10*3/uL (2.0-8.3); Neutrophils Percent Auto 70.4 % (45-73); Platelet Count 479 X10*3/uL (160-400); Red Blood Count 3.76 X10*6/uL (4.20-5.50); Red Cell Distribution Width 14.4 % (11.0-16.0); White Blood Count 9.1 X10*3/uL (4.8-10.8)
[2024-01-05 14:20] LABS: Alanine Aminotransferase 20 U/L (0-31); Albumin Level 4.2 g/dL (3.5-5.0); Alkaline Phosphatase 96 U/L (39-117); Anion Gap 11 (12-20); Aspartate Amino Transferase 29 U/L (5-31); Bilirubin Total 0.3 mg/dL (0.0-1.0); Blood Urea Nitrogen 16 mg/dL (9-16); Calcium 9.4 mg/dL (8.4-10.2); Carbon Dioxide 28 mmol/L (22-29); Chloride 102 mmol/L (96-108); Cholesterol 220 mg/dL (<200); Estimated Glomerular Filt Rate > 60; Glucose Random 120 mg/dL (60-115); HDL Cholesterol 84 mg/dL (>40); LDL Cholesterol Calculated 115 mg/dL (<100); Potassium 4.4 mmol/L (3.3-5.1); Sodium 137 mmol/L (135-145); Total Protein 7.2 g/dL (6.5-8.0); Triglycerides 109 mg/dL (<150)
== END 2024-01-05 12:29 | disposition home or self-care (01) ==
LOC: HO.LAB 12:28
PROVIDERS: Visit Provider Internal Medicine
DX: E78.00 Pure hypercholesterolemia, unspecified (principal); I10 Essential (primary) hypertension; M40.202 Unspecified kyphosis, cervical region; M81.8 Other osteoporosis without current pathological fracture; S13.4XXS Sprain of ligaments of cervical spine, sequela
CPT/HCPCS: 36415; 80053; 80061; 82306; 85025

== ENCOUNTER 2024-01-13 10:30 | Outpatient (REF) | payer MEDICARE, SELFPAY ==
--- NOTE | ~2024-01-13 | XR_ITS ---
EXAMINATION: XR CERVICAL SPINE CLINICAL INFORMATION: Kyphosis. COMPARISON: 10/19/2006. TECHNIQUE: 4 views of the cervical spine. FINDINGS: The bones are diffusely demineralized. Mild anterolisthesis of C2 on C3, C3 on C4, C4 on C5, and C5 on C6 Moderate multilevel cervical spondylosis with loss of disc space height most notable at C5-C6. XR/XR cervical spine 3V IMPRESSION: Progression of multilevel cervical spondylosis.
[2024-01-13 13:02] LABS: Ferritin 18 ng/mL (10-250)
[2024-01-13 13:13] LABS: Folate 17.3 ng/mL (> or = 4.0); Vitamin B12 1044 pg/mL (200-900)
[2024-01-17 13:49] LABS: Prot Elec - Alpha1 0.2 g/dL (0.2-0.3); Prot Elec - Alpha2 0.7 g/dL (0.5-0.9); Prot Elec - Beta 1 0.5 g/dL (0.4-0.6); Prot Elec - Beta 2 0.3 g/dL (0.2-0.5); Prot Elec - Gamma 0.7 g/dL (0.8-1.7); Prot Elec - Total Protein 6.5 g/dL (6.1-8.1)
== END 2024-01-13 10:31 | disposition home or self-care (01) ==
LOC: HO.XRAY 10:30
PROVIDERS: PCP Internal Medicine; Visit Provider Internal Medicine
DX: D64.89 Other specified anemias (principal); E78.00 Pure hypercholesterolemia, unspecified; I10 Essential (primary) hypertension; M40.203 Unspecified kyphosis, cervicothoracic region
CPT/HCPCS: 36415; 72040; 82607; 82728; 82746; 84165

== ENCOUNTER 2024-07-25 12:11 | Outpatient (REF) | payer MEDICARE, SELFPAY ==
[2024-07-25 13:17] LABS: MANUAL DIFF FLAG NO
[2024-07-25 13:34] LABS: Basophils Absolute Auto 0.1 X10*3/uL (0.0-0.2); Basophils Percent Auto 0.8 % (0-2); Eosinophils Absolute Auto 0.1 X10*3/uL (0.0-0.4); Eosinophils Percent Auto 0.9 % (0-4); Hematocrit 31.6 % (37.0-47.0); Hemoglobin 10.3 g/dl (12.0-16.0); Imm Gran Abs Auto 0.02 X10*3/uL (0.00-0.03); Imm Gran Pct Auto 0.2 % (0.0-0.4); Lymphocytes Percent Auto 20.4 % (20-40); Mean Corpuscular HGB Conc 32.6 g/dl (31.0-35.0); Mean Corpuscular Hemoglobin 25.2 pg (27.0-33.0); Mean Corpuscular Volume 77.5 fL (80.0-98.0); Mean Platelet Volume 8.7 fL (9.4-12.3); Monocytes Absolute Auto 0.9 X10*3/uL (0.1-1.2); Monocytes Percent Auto 9.1 % (2-11); Neutrophils Absolute Auto 6.8 x10*3/uL (2.0-8.3); Neutrophils Percent Auto 68.6 % (45-73); Platelet Count 518 X10*3/uL (160-400); Red Blood Count 4.08 X10*6/uL (4.20-5.50); Red Cell Distribution Width 18.8 % (11.0-16.0); White Blood Count 9.9 X10*3/uL (4.8-10.8)
[2024-07-25 13:56] LABS: Alanine Aminotransferase 18 U/L (0-31); Albumin Level 4.2 g/dL (3.5-5.0); Alkaline Phosphatase 77 U/L (39-117); Anion Gap 13 (12-20); Aspartate Amino Transferase 21 U/L (5-31); Bilirubin Total 0.3 mg/dL (0.0-1.0); Blood Urea Nitrogen 15 mg/dL (9-16); Calcium 9.6 mg/dL (8.4-10.2); Carbon Dioxide 27 mmol/L (22-29); Chloride 104 mmol/L (96-108); Estimated Glomerular Filt Rate > 60; Glucose Random 99 mg/dL (60-115); Potassium 4.9 mmol/L (3.3-5.1); Sodium 139 mmol/L (135-145); Total Protein 7.3 g/dL (6.5-8.0)
[2024-07-25 14:13] LABS: Ferritin 11 ng/mL (10-250)
[2024-07-25 14:33] LABS: Folate 18.7 ng/mL (> or = 4.0); Vitamin B12 784 pg/mL (200-900)
== END 2024-07-25 12:12 | disposition home or self-care (01) ==
LOC: HO.10HDL 12:11
PROVIDERS: Visit Provider Internal Medicine
DX: I10 Essential (primary) hypertension (principal); I25.810 Atherosclerosis of coronary artery bypass graft(s) without angina pectoris; D63.8 Anemia in other chronic diseases classified elsewhere
CPT/HCPCS: 36415; 80053; 82607; 82728; 82746; 85025

== ENCOUNTER 2024-10-15 07:46 | Emergency (ER) | payer MEDICARE, SELFPAY ==
--- NOTE | ~2024-10-15 | CT_ITS ---
EXAMINATION: CT ABDOMEN AND PELVIS WITHOUT CONTRAST CLINICAL INFORMATION: Left flank and hip pain after fall. COMPARISON: None available. TECHNIQUE: Multidetector volumetric imaging was performed from the superior aspect of the liver through the pubic symphysis. Sagittal and coronal reformatted images were obtained on the technologist's workstation. This CT examination was performed using dose optimization techniques as appropriate, variously including the following: *Automated exposure control *Adjustment of mA and/or kV according to patient size (this includes techniques or standardized protocols for targeted exams where dose is matched to indication/reason for exam; i.e. extremities or head) *Use of iterative reconstruction technique DLP: 370 mGy-cm FINDINGS: Visualized lung bases demonstrate mild dependent atelectasis. The liver is normal in size. The gallbladder is normal in appearance. The pancreas, spleen and adrenal glands are unremarkable. Symmetrically sized kidneys. No renal calculi or hydronephrosis of either kidney. Small left renal cyst. The stomach is decompressed. Normal caliber loops of small and large bowel. Mild to moderate stool burden throughout the majority of the colon. Mild colonic diverticulosis without CT evidence to suggest active diverticulitis. Normal caliber abdominal aorta demonstrating mild to moderate atherosclerotic disease. No retroperitoneal lymphadenopathy. The bladder is normal in appearance. Uterus is surgically absent. No gross free pelvic fluid. 2 cm left adnexal cyst. Diffuse osteopenia. Scoliotic and degenerative changes of the spine. CT/CT abdomen pelvis wo IV con IMPRESSION: 1. No CT evidence for acute abnormality within the abdomen or pelvis. 2. Mild to moderate stool burden throughout the colon suggesting constipation. 3. Mild colonic diverticulosis without CT evidence to suggest active diverticulitis. 4. 2 cm left adnexal cyst. Fleischner guidelines were followed. Electronically signed by: Jossue Sinclair MD 10/15/2024 09:39 AM [facility]
[2024-10-15 07:50] VITALS: BP 179/67; PULSE 95; RESP 19; TEMP 36.6; O2SAT 96; BMI 20.5
--- NOTE | 2024-10-15 08:26 | ED_ITS ---
HPI - General Adult General Chief complaint: General Medical Stated complaint: fall 10/13 Time Seen by Provider: 10/15/24 08:02 Source: patient and family ( niece) Mode of arrival: ambulatory Limitations: no limitations History of Present Illness ED Provider: DR. Dee HPI narrative: this is a 79-year-old female who came in for evaluation of left flank pain/left hip pain after she sustained a fall 3 days ago patient slipped off the toilet seat pulled a muscle on her left flank area ended up falling down to the ground patient used her left arm to ease the fall, there is left forearm small ecchymosis with no deformity and no pain. Patient declined head injury, no LOC, not taking anticoagulation, no chest pain, no abdominal pain, no hematuria, no dysuria, no frequency urination. Related Data Home Medications ?Medication ?Instructions ?Recorded ?Confirmed aspirin 1 tab PO DAILY 03/30/22 01/18/23 ferrous sulfate 325 mg (65 mg 325 mg PO DAILY 12/24/22 01/18/23 iron) tablet Allergies Allergy/AdvReac Type Severity Reaction Status Date / Time No Known Allergies Allergy Verified 10/15/24 07:55 Review of Systems Review of Systems: All other systems are reviewed and are negative Constitutional: Reports as per HPI and Reports no additional constitutional complaints Eyes: Reports as per HPI and Reports no additional eye complaints Reports system reviewed and no additional complaints, except as documented Cardiovascular: Reports as per HPI and Reports no additional cardiovascular complaints Respiratory: Reports as per HPI and Reports no additional respiratory complaints Gastrointestinal: Reports as per HPI and Reports no additional gastrointestinal complaints Genitourinary: Reports no additional female genitourinary complaints Musculoskeletal: Reports no additional musculoskeletal complaints Skin/Breast: Reports system reviewed and no additional complaints, except as docu Psychiatric: Reports no additional psychiatric complaints Endocrine: Reports no additional endocrine complaints Hematologic/Lymphatic: Reports no additional hematologic/lymphatic complaints Allergic/Immunologic: Reports no additional allergic/immunologic complaints Reports system reviewed and no additional complaints, except as documented and Reports Abnormal speech present [facility] Past Medical History Medical History Iron deficiency anemia History of COVID-19 Myocardial infarction Surgical History Hx of hysterectomy Hx of appendectomy H/O colonoscopy History of esophagogastroduodenoscopy (EGD) Social History Social History Are you a primary human services care specialist to a significant other at home: No Do you presently have visiting nurse or other home services: No Alcohol intake: current Alcohol intake frequency: does not drink Patient Tobacco Use Status: Former Tobacco user Tobacco use type: Cigarette Advance Directives: No Advance Directives Information Provided: Yes Do you have a plan to hurt others: No Plan Physical Exam ED Vital Signs: Vital Signs - 24 hr 10/15/24 07:50 Temperature 98 F Pulse Rate 95 Respiratory Rate 19 Blood Pressure 179/67 H Pulse Oximetry 96 Oxygen Delivery Method Room Air BMI result Body Mass Index 20.5 Vital signs have been reviewed and appear to be correct. Blood pressure elevated. Heart rate normal. Respiratory rate normal. Temperature normal. Oxygen saturation normal. Appearance: Alert. Oriented X3. No acute distress. Head: Normal external exam. Normocephalic. Atraumatic. No Rutherford signs noted. No raccoon eyes noted Eyes: PERRLA. EOMI. Conjunctiva and sclera normal. Eyelids normal. ENT: TM's Normal. Pharynx normal. Uvula midline. Moist mucous membranes. No trismus noted. No drooling noted. No muffled voice noted. Neck: Normal inspection. Neck supple. FROM. No adenopathy. Thyroid Normal. No meningeal signs. No neck mass noted. CVS: Normal heart rate and rhythm. Heart sound normal. No murmurs noted. Pulses normal throughout. Respiratory: No respiratory distress. Painless inspiration. Breath sounds normal. No wheezes/rales/rhonchi noted. Chest nontender. No accessory muscle usage noted or decreased air movement noted. Abdomen: Soft and nontender. Bowel sounds normal in all 4 quadrants. No distention noted. No organomegaly noted. No visible injury noted. Back: Left CVA tenderness. no flank ecchymosis, Full range of motion noted. Skin: Skin warm and dry. Normal skin color. Normal skin turgor. No rashes/lesions/lacerations noted. Extremities: left upper extremity: Neurovascularly intact, small area of ecchymosis about 3 x 5 cm to the left forearm ulnar side. Neuro: Oriented X 3. Cranial nerve exam: II-XII are grossly intact No motor deficit. No sensory deficit. Reflexes normal. Course Reevaluation(s) Reevaluation #1: S/p fall with left flank pain, CT abdomen pelvis show no acute pathology, urine is positive for microhematuria. Reassured the patient, encouraged to drink plenty of fluids. Time: 10:10 Medical Decision Making Differential Diagnosis Differential Diagnoses: The differential diagnosis associated with the presentation includes ( Muscular pain, intra-abdominal organ injury, UTI, pyelonephritis) Admission/Observation Consideration of admission/observation: Escalation of care including admis fiorella/observation considered Lab Data MDM Lab Attestation statement: I reviewed the patient's lab results. Labs: Lab Results 10/15/24 Range/Units 08:37 Urine Color Yellow Urine Appearance Clear Urine pH 6.5 (5.0-9.0) Ur Specific Murray 1.015 (1.005-1.025) Urine Protein Trace (Neg-Trace) mg/dL Urine Glucose (UA) Negative (Negative) mg/dL Urine Ketones Negative (Negative) mg/dL Urine Blood Trace H (Negative) Urine Nitrite Negative (Negative) Ur Leukocyte Esterase Negative (Negative) Urine RBC 6-10 H (0-2) /HPF Urine WBC 0-5 (0-5) /HPF Ur Squamous Epith Cells 0-2 (0-2) /HPF Urine Bacteria None Seen (None Seen) Hyaline Casts 0-2 (0-2) /LPF Independent Interpretation I performed an independent interpretation of an: CT Scan ( abdomen pelvis:1. No CT evidence for acute abnormality within the abdomen or pelvis. 2. Mild to moderate stool burden throughout the colon suggesting constipation. 3. Mild colonic diverticulosis without CT evidence to suggest active diverticulitis. 4. 2 cm left adnexal cyst. ) Radiology Impression Discussion of test interpretation with radiology: I have reviewed the radiologist's reading. Discharge Plan Discharge Clinical Impression: Contusion of left flank Patient Disposition: Home, Self-Care Instructions: Contusion in Adults (ED) Prescriptions: No Action ferrous sulfate 325 mg (65 mg iron) Tablet 325 mg PO DAILY aspirin 81 mg tablet 1 tab PO DAILY Referrals: Jesusita Corea MD [Primary Care Provider] - Print Language: Bengali
[2024-10-15 08:44] LABS: Appearance Urine Clear; Color Urine Yellow; Glucose Urine UA Negative (Negative); Leukocyte Esterase Urine Negative (Negative); Nitrite Urine Negative (Negative); PH 6.5 (5.0-9.0); Specific Gravity - Urine 1.015 (1.005-1.025); UMIC TRIGGER UACC YES; Urine Blood Trace (Negative); Urine Ketones Negative (Negative); Urine Protein Trace mg/dL (Neg-Trace)
[2024-10-15 08:46] LABS: Bacteria Urine None Seen (None Seen); Hyaline Casts Urine 0-2 /LPF (0-2); Squamous Epithelial Cell Urine 0-2 /HPF (0-2); WBC Urine 0-5 /HPF (0-5)
[2024-10-15 10:34] VITALS: BP 179/67; PULSE 95; RESP 19; TEMP 36.6; O2SAT 96
== END 2024-10-15 10:49 | disposition home or self-care (01) ==
PROVIDERS: Emergency Provider Emergency Medicine; PCP Internal Medicine
DX: S30.1XXA Contusion of abdominal wall, initial encounter (principal); S70.02XA Contusion of left hip, initial encounter; R10.2 Pelvic and perineal pain; W18.12XA Fall from or off toilet with subsequent striking against object, initial encounter; Y92.091 Bathroom in other non-institutional residence as the place of occurrence of the external cause; Y93.89 Activity, other specified; Y99.8 Other external cause status; Z79.899 Other long term (current) drug therapy; Z87.891 Personal history of nicotine dependence
CPT/HCPCS: 74176; 81001; 99284

== ENCOUNTER 2025-01-25 09:52 | Outpatient (REF) | payer MEDICARE, SELFPAY ==
[2025-01-25 10:30] LABS: MANUAL DIFF FLAG NO
[2025-01-25 10:53] LABS: Basophils Absolute Auto 0.1 X10*3/uL (0.0-0.2); Basophils Percent Auto 0.9 % (0-2); Eosinophils Absolute Auto 0.1 X10*3/uL (0.0-0.4); Eosinophils Percent Auto 0.8 % (0-4); Hematocrit 29.7 % (37.0-47.0); Hemoglobin 9.4 g/dl (12.0-16.0); Imm Gran Abs Auto 0.02 X10*3/uL (0.00-0.03); Imm Gran Pct Auto 0.2 % (0.0-0.4); Lymphocytes Absolute Auto 1.8 X10*3/uL (1.2-4.9); Lymphocytes Percent Auto 21.3 % (20-40); Mean Corpuscular HGB Conc 31.6 g/dl (31.0-35.0); Mean Corpuscular Volume 75.8 fL (80.0-98.0); Mean Platelet Volume 8.4 fL (9.4-12.3); Monocytes Absolute Auto 0.8 X10*3/uL (0.1-1.2); Monocytes Percent Auto 9.6 % (2-11); Neutrophils Absolute Auto 5.7 x10*3/uL (2.0-8.3); Neutrophils Percent Auto 67.2 % (45-73); Platelet Count 543 X10*3/uL (160-400); Red Blood Count 3.92 X10*6/uL (4.20-5.50); White Blood Count 8.5 X10*3/uL (4.8-10.8)
--- OUTSIDE RECORDS SUMMARY | 2025-01-25 11:25 | XMS_ITS | Patient Health Record ---
Author Organization [facility] Address [address] [place] [id number] Care Team Providers Care Fire Captain Name Role Phone Jesusita Corea Primary Care Provider UnavailSamuel De Leon Unavailable [phone] Allergies No Known Allergies Reason For Referral No Information Medications Medication SIG (Take, Route, Fr equency, Duration) Notes Start Date End Date Status Aspirin Adult Low Dose Active Immunizations Vaccine Route Administration Date Status Comme nts Influenza Unknown 03/17/2022 Refused Social History Tobacco Use: Social History Observation Description Date Details (start date - stop date) Former Smoker NA - NA Tobacco Use/Smoking Question Answer Notes Patient is a former smoker How long has it been since you last smoked? > 10 years Alcohol Screen Question Answer Notes Did you have a drink containing alcohol in the p ast year? No Points 0 Interpretation Negative Section Notes: Nonsmoker; no sig alcohol Came from [place] at age 16 Nonsmoker; no sig alcohol Came from [place] at age 16 Problems Problem Type SNOMED Code ICD Code Onset Dates Problem Status W/U Status Risk Notes Problem 249921298 Change in bowel habits (R19.4) Active confirmed Problem Gastritis (4114290) Gastritis (K29.70) Active confirmed Problem 14513319 Iron deficiency anemia, unspecified iron deficiency anemia type (D50.9) Active confirmed Problem Esophageal reflux finding (876333317) Gastroesophageal reflux (K21.9) Active confirmed Problem Diverticulosis of colon (121810058) Diverticulosis of colon (K57.30) Active confirmed Plan Of Treatment Pending Test Test Name Order Date LIVER PROFILE 03/17/2022 IRON + IBC (FE) 03/17/2022 VITAMIN B12 AND FOLATE 03/17/2022 CBC w DIFF 03/17/2022 CELIAC PANEL #10 03/17/2022 Future Test Test Name Order Date UPPER GI ENDOSCOPY 03/17/2022 COLONOSCOPY 03/17/2022 Insurance Providers Payer Name Payer Address Payer Phone Subscriber Number Group Number Insured Name Patient Relationship to Insured Coverage Start Date Coverage End Date [facility] [address] [place] [phone] [id number] PATRICE SIFUENTES Self - patient is the insured Medical (General) History Medical History History ICD Code Denies DM,CVA,Lung disease,renal disease Describes Left leg pain from COVID vacci ne 2020 Anemia--Iron def in 2020-corrected with oral Iron PR 2002 Upper endoscopy March of 2022 revealed a small hiatal hernia and minimal gastritis. Duodenal biopsies were negative for celiac disease and gastric biopsies were negative for H. pylori. There was no evidence of any significant esophagitis nor Pittman's esophagus Colonoscopy in March of 2022 was unremarka ble Surgical History Surgery Date(Month/Year)
[2025-01-25 11:36] LABS: Ferritin 10 ng/mL (10-250)
== END 2025-01-25 09:53 | disposition home or self-care (01) ==
LOC: HO.10HDL 09:52
PROVIDERS: Visit Provider Internal Medicine
DX: I10 Essential (primary) hypertension (principal); D63.8 Anemia in other chronic diseases classified elsewhere; I25.810 Atherosclerosis of coronary artery bypass graft(s) without angina pectoris
CPT/HCPCS: 36415; 82728; 85025

== ENCOUNTER 2025-08-13 07:29 | Outpatient (REF) | payer MEDICARE, SELFPAY ==
--- OUTSIDE RECORDS SUMMARY | 2025-08-13 07:33 | XMS_ITS | Patient Health Record ---
Author Organization [facility] Address [address] [place] [id number] Care Team Providers Care Blanket Weaver Name Role Phone Jesusita Corea Primary Care Provider UnavailSamuel De Leon Unavailable [phone] Allergies No Known Allergies Reason For Referral [...] Problem Status W/U Status Risk Notes Problem 327945122 Change in bowel habits (R19.4) Active confirmed Problem Gastritis (7562241) Gastritis (K29.70) Active confirmed Problem 51848229 Iron deficiency anemia, unspecified iron deficiency anemia type (D50.9) Active confirmed Problem Esophageal reflux finding (224399773) Gastroesophageal reflux (K21.9) Active confirmed Problem Diverticulosis of colon (747209806) Diverticulosis of colon (K57.30) Active confirmed Plan [...] Insured Coverage Start Date Coverage End Date [facility] [address] [place] [id number] PATRICE SIFUENTES Self - patient is the [...]
[2025-08-13 10:26] LABS: MANUAL DIFF FLAG NO
[2025-08-13 10:31] LABS: Hematocrit 31.0 % (37.0-47.0); Hemoglobin 9.7 g/dl (12.0-16.0); Imm Gran Abs Auto 0.02 X10*3/uL (0.00-0.03); Imm Gran Pct Auto 0.3 % (0.0-0.4); Lymphocytes Absolute Auto 1.4 X10*3/uL (1.2-4.9); Mean Corpuscular HGB Conc 31.3 g/dl (31.0-35.0); Mean Corpuscular Hemoglobin 22.9 pg (27.0-33.0); Mean Corpuscular Volume 73.1 fL (80.0-98.0); NRBC Abs Auto 0.000 X10*3/uL (0.0-0.012); NRBC Pct Auto 0.0 /100WBC (0.0-0.2); Platelet Count 535 X10*3/uL (160-400); Red Blood Count 4.24 X10*6/uL (4.20-5.50); White Blood Count 7.2 X10*3/uL (4.8-10.8)
== END 2025-08-13 07:30 | disposition home or self-care (01) ==
LOC: HO.10HDL 07:29
PROVIDERS: Visit Provider Internal Medicine
DX: D50.8 Other iron deficiency anemias (principal); J30.1 Allergic rhinitis due to pollen; R05.9 Cough, unspecified
CPT/HCPCS: 36415; 85025